=== PATIENT | male | born 2000 | race Two or more races ===

== ENCOUNTER 2023-11-03 13:14 | Emergency (ER) | payer BC ==
[2023-11-03] MEDS ORDERED: Ibuprofen 600 MG Tab PO ONE (14:00)
[2023-11-03] MEDS ORDERED: Acetaminophen 500 MG Tab PO ONE (14:01)
[2023-11-03 14:55] LABS: CORONAVIRUS COVID-19 NAA NEGATIVE (NEGATIVE); INFLUENZA A NAA POSITIVE (NEGATIVE); INFLUENZA B NAA NEGATIVE (NEGATIVE); RESPIRATORY SYNCYTIAL VIR NAA NEGATIVE (NEGATIVE)
== END 2023-11-03 15:41 | disposition home or self-care (01) ==
LOC: MW.ED 13:14
DX: J10.1 Influenza due to other identified influenza virus with other respiratory manifestations (principal); Z20.822 Contact with and (suspected) exposure to COVID-19
CPT/HCPCS: 0241U; 87651; 99284; A9270